=== PATIENT | female | born 1975 | race Caucasian/White ===

== ENCOUNTER 2022-02-24 00:13 | Emergency (ER) | payer OTHER, SELFPAY ==
[2022-02-24 00:17] VITALS: BP 138/103; PULSE 84; RESP 16; TEMP 36.4; O2SAT 95; BMI 26.4
--- NOTE | 2022-02-24 00:18 | W.ED.ALLEREA ---
HPI - Allergic Reaction General: Chief complaint: Allergic Reaction Stated complaint: Allergic Reaction Time Seen by Provider: 02/24/22 00:17 History of Present Illness: HPI narrative: 46-year-old female comes in today for complaints of hives patient has had a persistent rash since Wednesday. Patient felt worse tonight with itching all over and malaise and sore throat. Patient was given a dose of steroids this morning at the walk-in clinic and has been given a prescription for methylprednisolone. Patient has significant swelling to the face and hives all over. Review of Systems ENMT: Reports: swelling of lips/tongue Skin/Breast: Reports: rash Physical Exam Const: COMMON NORMALS: alert HENMT: HEAD & SCALP: other (Facial swelling) THROAT: posterior oropharynx normal Eye: GENERAL EYE: normal light reflex DIRECT OPHTHALMOSCOPY: Yes normal light reflex Resp: COMMON NORMALS: normal respiratory effort AUSCULTATION: diminished lung sounds Cardio: COMMON NORMALS: regular rate and regular rhythm RATE: regular rate RHYTHM: regular rhythm GI: COMMON NORMALS: Soft to palpation PALPATION: Yes Soft to palpation Extremity: COMMON NORMALS: normal to inspection Neuro: SENSORIUM/ORIENTATION: Yes alert Skin: RASHES: rashes noted (Generalized urticaria.) Course Vital Signs: Vital signs: Vital Signs Temperature 97.6 F 02/24/22 00:17 Pulse Rate 96 02/24/22 00:25 Respiratory Rate 16 02/24/22 00:25 Blood Pressure 126/75 02/24/22 00:25 Pulse Oximetry 95 02/24/22 00:25 Oxygen Delivery Me thod 02/24/22 00:17 MDM - Allergic Reaction Medical Decision Making 46-year-old female comes in today for complaints of itching and rash that has been going on since Wednesday evening. Patient does not know what has caused her hives. Patient was seen earlier today and given a dose of steroids IM but tonight the rash seemed to have progressed worse and causing more discomfort and facial swelling along with hives. Patient appears nontoxic. Patient respirations are even. Lungs diminished in the bases. Patient does have some mild facial swelling and some urticaria diffuse to the body. Differential diagnosis includes but not limited to allergic reaction, urticaria, anaphylaxis. Patient was given 0.3 mg of epinephrine IM, and 50 mg of diphenhydramine. Patient will be continued on antihistamines routinely along with her methylprednisone that was started today. Patient reported understanding of care plan and need for follow-up or return to the ER. Discharge Plan Discharge Patient Disposition: Home Clinical Impression: Allergic reaction Qualifiers: Encounter type: initial encounter Qualified Code(s): T78.40XA - Allergy, unspecified, initial encounter Condition: Stable Prescriptions: New loratadine 10 mg tablet 10 mg PO BID Qty: 60 0RF Rx Instructions: Use 1 to 2 tablets 2 times a day for itching and rash. Discharge Orders: Discharge ED (Routine); Ordered 02/24/22 Ordered By: Bill Booth Discharge Diet: Usual diet Discharge Activity: Increase activity as tolerated Patient Instructions: Allergic Reaction Activity Restrictions/Additional Instructions: Take loratadine 10 mg 1 or 2 tablets twice a day, once in the morning and once in the evening, to control itching and rash. Drink plenty of water and fluids with medications. Use steroid pack as described. Follow-up with primary care for further instruction. Return to ED for new concerns. Coding Level of Care Code ED Process Validation Engineer for Malu Stanley Exam Comprehensive
[2022-02-24 00:25] VITALS: BP 126/75; PULSE 96; RESP 16; O2SAT 95
[2022-02-24] MEDS: diphenhydrAMINE 50 mg/mL SDV 1mL IM (00:30)
[2022-02-24] MEDS: EPINEPHrine 1 mg/mL INJ 0.3 MG IM (00:31)
[2022-02-24] MEDS: cetirizine 10 mg Tablet PO (01:29)
[2022-02-24 01:51] VITALS: BP 137/90; PULSE 86; RESP 16; O2SAT 94
== END 2022-02-24 01:59 | disposition home or self-care (01) ==
PROVIDERS: Emergency Provider Nurse Practitioner Family
DX: T78.40XA Allergy, unspecified, initial encounter (principal)
CPT/HCPCS: 96372; 99284; J0171; J1200

== ENCOUNTER 2022-05-11 10:07 | Inpatient (IN) | payer OTHER, SELFPAY ==
[2022-05-11 10:12] VITALS: BP 105/75; PULSE 114; RESP 18; TEMP 36.6; O2SAT 96
--- NOTE | 2022-05-11 10:28 | XR_ITS ---
WS: [id number] Exam: XR chest 1V portable [id number] Date/Time of Exam: 05/11/2022 10:32 AM Reason For Exam: fever, body aches No priors. Findings: The lungs are clear and fully expanded. Costophrenic angles are sharp. No infiltrates. Bronchovascula r relief appears normal. Cardiac silhouette is unremarkable. Bony elements are intact. XR/XR chest 1V portable [id number] IMPRESSION: Unremarkable chest radiograph.
--- NOTE | 2022-05-11 10:43 | ED_ITS ---
HPI - Fever General: Chief Complaint: Fever Stated Complaint: fever Time Seen by Provider: 05/11/22 10:17 Source: patient Mode of arrival: ambulatory Limitations: no limitations History of Present Illness: Patient is a 46-year-old female presents to ED today with a complaint of body aches, chills, and subjective fevers. Patient has a family member in the room that provides much of the translation. She does states she was recently seen at a walk-in clinic and prescribed ciprofloxacin but she does not know why. She states a few days ago she had what she thought was blood in her urine but states this cleared up by increasing her fluid intake. She has not had a cough, shortness of breath, difficulty breathing, chest pain. Reports some vague right sided abdominal discomforts. Denies nausea, vomiting, changes in bowel movements. She denies dysuria, frequency, urgency. No sick contacts. MD elicited complaint: fever (subjective) and other (chills, body aches) Exacerbating factors: nothing Relieving factors: nothing Associated symptoms: Reports chills; Deny abdominal pain, flank pain, chest pain, confusion, diarrhea, dysuria, extremity pain, headache(s), nasal congestion, nausea or vomiting Treatments prior to arrival fever: none Review of Systems Const: Reports: fever(s) (subjective), chills and body aches; Denies: fatigue or malaise Eyes: Denies: change in vision or blurry vision ENMT: Denies: throat pain, odynophagia, nasal discharge or nasal congestion Card: Denies: chest pain, palpitations, irregular heart rhythm, lightheadedness, syncope or dyspnea on exertion Resp: Denies: dyspnea, productive cough or pain on inspiration GI: Denies: abdominal pain, nausea, vomiting, heartburn or diarrhea : Reports: hematuria (questionable); Denies: flank pain or dysuria Musc: Denies: neck pain, back pain, extremity pain, extremity swelling or joint pain Skin/Breast: Denies: rash Neuro: Denies: headache(s), numbness in extremities, weakness in extremities, sensory changes, difficulty walking, dizziness or confusion Physical Exam Const: COMMON NORMALS: no acute distress, average body habitus, patient oriented x3, no limitations, healthy appearing, alert and well nourished G ENERAL APPEARANCE: cooperative ORIENTATION/CONSCIOUSNESS: Yes awake, Yes oriented to person, Yes oriented to place and Yes oriented to time HENMT: COMMON NORMALS: normocephalic and atraumatic HEAD & SCALP: normal to inspection, normocephalic and atraumatic FACE & SINUS: normal facial exam Eye: GENERAL EYE: appearance normal, both eyes and all related structures Neck/C-Spine: COMMON NORMALS: full ROM, no lymphadenopathy, supple and no meningeal signs GENERAL: Yes normal visual inspection Chest: COMMONS NORMALS: normal inspection of the chest and normal palpation of entire chest wall Resp: COMMON NORMALS: normal respiratory effort and clear to auscultation bilaterally AUSCULTATION: clear to auscultation bilaterally Cardio: COMMON NORMALS: regular rhythm RATE: tachycardic RHYTHM: regular rhythm GI: COMMON NORMALS: Normal to inspection, nondistended, normoactive bowel sounds present, Soft to palpation, No hepatosplenomegaly present and no masses INSPECTION: Yes normal to inspection AUSCULTATION: Yes normoactive bowel sounds PALPATION: Yes Soft to palpation, Yes Tenderness to palpation present (GI) (R mid to lateral abdomen), No Guarding due to palpation present (GI), No Rigid due to palpation and Yes No hepatosplenomegaly present : COMMON NORMALS: Yes no CVA tenderness (tenderness below R CVA) BLADDER/KIDNEY EXAM: Yes no CVA tenderness (tenderness below R CVA) Back/Pelvis: COMMON NORMALS: no CVA tenderness (tenderness below R CVA), thoracic and lumbar spine normal to inspection, no thoracic nor lumbar tenderness and thoraco-lumbar ROM normal Extremity: COMMON NORMALS: normal to inspection GENERAL: Yes normal exam except as noted Neuro: DORIE COMA SCALE: document GCS findings [place] coma scale eye opening: Spontaneous Dorie coma scale verbal response: Orientated Dorie coma scale motor response: Obey commands Dorie coma scale total score: 15 COMMON NORMALS: patient oriented x3, moves all extremities, no focal motor deficits, no sensory deficits noted and gait normal SENSORIUM/ORIENTATION: Yes alert, Yes oriented to person, Yes oriented to place and Yes oriented to time MENINGEAL SIGNS: Yes no meningeal signs Skin: COMMON NORMALS: no rashes or lesions noted GENERAL SKIN EXAM: no rashes or lesions noted Course Vital Signs: Vital signs: Vital Signs Temperature 98.7 F 05/11/22 13:23 Pulse Rate 93 05/11/22 13:23 Respiratory Rate 17 05/11/22 13:23 Blood Pressure 100/64 05/11/22 13:23 Pulse Oximetry 98 05/11/22 13:23 Oxygen Delivery Me thod 05/11/22 13:23 MDM - Fever Medical Decision Making Patient is a 46-year-old female here with complaints of body aches, chills, generally feeling ill, and subjective fevers. She arrives tachycardic but afebrile. She was seen at [facility] yesterday and at the time also had a complaint of dark/bloody urine. They performed a UA showed 2+ blood, positive nitrates, and trace leuks. They placed her on Cipro. I do not believe culture was performed as unit technician tried to obtain this and they did not have any prelim results. Patient is here in our ED today with continued symptoms. She complained of some abdominal/flank pains therefore CT imaging obtained which showed a 5 mm right mid ureter calculus. Her initial UA here was contaminated with 5-10 squamous cells thus cath urine obtained. It is positive for blood but negative for nitrates and leuks and overall looks clean. She has a normal white count. Given the concern for infection based on her UA yesterday and symptoms of body aches/chills/subjective fevers I spoke to Dr. Schulte who recommends admission/IV antibiotics at this time. Lab Data 05/11/22 10:59 05/11/22 10:59 Radiology Impressions Chest X-Ray 05/11/22 10:28 IMPRESSION: Unremarkable chest radiograph. Abdomen/Pelvis CT 05/11/22 11:59 IMPRESSION: 1. Obstructing RIGHT midureteral calculus measuring 5 mm. Mild RIGHT hydronephrosis with inflammatory stranding and edema about the RIGHT kidney. 2. No hydronephrosis in the LEFT kidney. 3. Enlarged bulky fibroid uterus. Low-attenuation cystic appearing lesion near the cervix. Findings can be further evaluated with ultrasound. 4. Bibasilar atelectasis. Trace RIGHT greater than LEFT pleural fluid. 5. No other acute findings. Attempted notification CLARITA Love at 05/11/2022 1:05 PM. Laboratory Results WBC 7.3 10^3/uL (4.0-10.0) 05/11/22 10:59 RBC 4.61 10^6/uL (4.1-5.3) 05/11/22 10:59 Hgb 13.2 g/dL (11.5-15.3) 05/11/22 10:59 Hct 40.8 % (37.0-47.0) 05/11/22 10:59 MCV 88.5 fl (81-99) 05/11/22 10:59 MCH 28.6 pg (28.0-34.0) 05/11/22 10:59 MCHC 32.4 g/dL (30.0-36.0) 05/11/22 10:59 RDW 12.5 % (12.1-15.1) 05/11/22 10:59 Plt Count 247 10^3/cmm (130-400) 05/11/22 10:59 MPV 9.2 fL (7.4-10.4) 05/11/22 10:59 Neut % (Auto) 90.3 % 05/11/22 10:59 Lymph % (Auto) 4.3 % 05/11/22 10:59 Lynn % (Auto) 4.9 % 05/11/22 10:59 Eos % (Auto) 0.0 % 05/11/22 10:59 Baso % (Auto) 0.1 % 05/11/22 10:59 Neut # (Auto) 6.57 10^3/uL (1.8-7.7) 05/11/22 10:59 Lymph # (Auto) 0.3 10^3/uL (0.8-4.8) L 05/11/22 10:59 Lynn # (Auto) 0.4 10^3/uL (0.2-0.9) 05/11/22 10:59 Eos # (Auto) 0.0 10^3/uL (0.0-0.8) 05/11/22 10:59 Baso # (Auto) 0.0 10^3/uL (0.0-0.1) 05/11/22 10:59 Nucleated RBC % (auto) 0 % 05/11/22 10:59 Nucleated RBCs # 0.0 /100WBC 05/11/22 10:59 Sodium 133 mmol/L (136-145) L 05/11/22 10:59 Potassium 3.0 mmol/L (3.5-5.1) L 05/11/22 10:59 Chloride 97 mmol/L (98-107) L 05/11/22 10:59 Carbon Dioxide 22 mmol/L (22-29) 05/11/22 10:59 Anion Gap 17.0 (5-19) 05/11/22 10:59 BUN 7 mg/dL (6-20) 05/11/22 10:59 Creatinine 0.6 mg/dL (0.5-0.9) 05/11/22 10:59 GFR Calculation 108.1 mL/min (90-130) 05/11/22 10:59 Glucose 170 mg/dL (65-115) H 05/11/22 10:59 Calculated Osmolality 278 mOsm/kg (285-295) L 05/11/22 10:59 Calcium 9.3 mg/dL (8.5-10.5) 05/11/22 10:59 Total Bilirubin 0.8 mg/dL (0.15-1.2) 05/11/22 10:59 AST 54 U/L (0-32) H 05/11/22 10:59 ALT 67 U/L (0-33) H 05/11/22 10:59 Alkaline Phosphatase 98 U/L (35-105) 05/11/22 10:59 Total Protein 7.7 g/dL (6.6-8.7) 05/11/22 10:59 Albumin 3.9 g/dL (3.5-5.2) 05/11/22 10:59 Globulin 3.8 g/dL (1.3-4.6) 05/11/22 10:59 Urine Color Light yellow (Yellow) 05/11/22 13:32 Urine Appearance Clear (CLEAR) 05/11/22 13:32 Urine pH 6 (5-7) 05/11/22 13:32 Ur Specific [place] 1.005 (1.005-1.030) 05/11/22 13:32 Urine Protein Neg (Negative) 05/11/22 13:32 Urine Glucose (UA) Norm (Normal) 05/11/22 13:32 Urine Ketones Negative (Negative) 05/11/22 13:32 Urine Blood 2+ (Negative) H 05/11/22 13:32 Urine Nitrate Negative (Negative) 05/11/22 13:32 Urine Bilirubin Neg (Negative) 05/11/22 13:32 Urine Urobilinogen Norm mg/dL (Negative) 05/11/22 13:32 Ur Leukocyte Esterase Negative (Negative) 05/11/22 13:32 Urine RBC 0-4 /hpf (0-2) H 05/11/22 11:17 Urine WBC 0-4 /hpf (0-5) H 05/11/22 11:17 Ur Squamous Epith Cells 5-10 /hpf (0-5) H 05/11/22 11:17 Amorphous Sediment Trace /hpf 05/11/22 11:17 Urine Bacteria 1+ /hpf (NONE) H 05/11/22 11:17 Influenza Type A Ag negative (Negative) 05/11/22 11:05 Influenza Type B Ag negative (Negative) 05/11/22 11:05 SARS-CoV-2 Ag (Rapid) negative (Negative) 05/11/22 11:05 Discharge Plan Discharge Patient Disposition: Admitted As Inpatient Clinical Impression: Right ureteral calculus, UTI (urinary tract infection) Condition: Stable Coding Level of Care Code ED Sheeter Operator for Malu Stanley
[2022-05-11] MEDS: acetaminophen 500 mg Tablet 1000 MG PO (11:04)
[2022-05-11 11:19] LABS: Basophils % 0.1 %; Hematocrit 40.8 % (37.0-47.0); Hemoglobin 13.2 g/dL (11.5-15.3); Lymphocytes # 0.3 10^3/uL (0.8-4.8); Lymphocytes % 4.3 %; Mean Corpuscular HGB Conc 32.4 g/dL (30.0-36.0); Mean Corpuscular Hemoglobin 28.6 pg (28.0-34.0); Mean Corpuscular Volume 88.5 fl (81-99); Mean Platelet Volume 9.2 fL (7.4-10.4); Monocytes # 0.4 10^3/uL (0.2-0.9); Monocytes % 4.9 %; Neutrophils # 6.57 10^3/uL (1.8-7.7); Neutrophils % 90.3 %; Nucleated Red Blood Cells % 0 %; Platelet Count 247 10^3/cmm (130-400); Red Blood Count 4.61 10^6/uL (4.1-5.3); Red Cell Distribution Width 12.5 % (12.1-15.1); White Blood Count 7.3 10^3/uL (4.0-10.0)
[2022-05-11 11:33] LABS: Influenza A by IFA negative (Negative); Influenza B by IFA negative (Negative); SARS Covid-2 Antigen negative (Negative)
[2022-05-11 11:37] LABS: Slide Review Slide Review Perform
[2022-05-11 11:48] LABS: Alanine Aminotransferase 67 U/L (0-33); Albumin Level 3.9 g/dL (3.5-5.2); Alkaline Phosphatase 98 U/L (35-105); Aspartate Amino Transferase 54 U/L (0-32); Blood Urea Nitrogen 7 mg/dL (6-20); Calcium 9.3 mg/dL (8.5-10.5); Carbon Dioxide 22 mmol/L (22-29); Chloride 97 mmol/L (98-107); Globulin 3.8 g/dL (1.3-4.6); Glomerular Filtration Rate 108.1 mL/min (90-130); Glucose 170 mg/dL (65-115); Osmolality Calculated 278 mOsm/kg (285-295); Sodium 133 mmol/L (136-145); Total Bilirubin 0.8 mg/dL (0.15-1.2); Total Protein 7.7 g/dL (6.6-8.7)
[2022-05-11 11:53] LABS: Add Urine Microscopic? YES; Bilirubin Urine Neg (Negative); Blood Urine 2+ (Negative); Glucose Urine UA Norm (Normal); Ketones Urine Negative (Negative); Leukocyte Esterase Urine Negative (Negative); Nitrate Urine Negative (Negative); Protein Urine Neg (Negative); RBC Urine 0-4 /hpf (0-2); Specific Gravity, Urine 1.005 (1.005-1.030); Urine Appearance Clear (CLEAR); Urine Color Yellow (Yellow); Urobilinogen Urine Norm (Negative); WBC Urine 0-4 /hpf (0-5); pH Urine 6.5 (5-7)
[2022-05-11 11:54] LABS: Add Urine Culture? No; Amorphous Sediment Urine TRACE /hpf; Bacteria Urine 1+ /hpf
--- NOTE | 2022-05-11 11:59 | CT_ITS ---
WS: [id number] CT ABDOMEN PELVIS TECHNIQUE: Noncontrast CT of the abdomen and pelvis with coronal and sagittal reformatted images. CLINICAL INFORMATION: R abdominal pain, hematuria, fevers COMPARISON: None. DLP: 521.[address] scans at [facility] use at least one of these dose optimization techniques: automated e xposure control; mA and/or kV adjustment per patient size (includes targeted exams where dose is matc hed to clinical indication); or iterative reconstruction. FINDINGS: Bibasilar atelectasis. Trace RIGHT greater than LEFT pleural fluid. Tiny nodule RIGHT middle lobe juwan suring 3 mm. Mild hepatomegaly. Small esophageal hiatal hernia. Noncontrast pancreas is normal. Nonco ntrast spleen is normal. Adrenal glands are normal. Normal caliber abdominal aorta. Heterogeneous enlarged fibroid uterus. Obstructing RIGHT ureteral calculus in the mid RIGHT ureter me asuring 5 mm. Mild RIGHT hydronephrosis. Distal RIGHT ureter is decompressed. No obstructing LEFT mee al or ureteral calculi. Urine distended bladder. Low-attenuation cystic lesion near the cervix measuring 2.2 CM. Normal sigmo id colon. No evidence of high-grade small or large bowel obstruction. CT/CT kidney stone [id number] IMPRESSION: 1. Obstructing RIGHT midureteral calculus measuring 5 mm. Mild RIGHT hydroneph rosis with inflammatory stranding and edema about the RIGHT kidney. 2. No hydronephrosis in the LEFT kidney. 3. Enlarged bulky fibroid uterus. Low-attenuation cystic appearing lesion near the cervix. Findings can be further evaluated with ultrasound. 4. Bibasilar atelectasis. Trace RIGHT greater than LEFT pleural fluid. 5. No other acute findings. Attempted notification CLARITA Love at 05/11/2022 1:05 PM.
[2022-05-11] MEDS: potassium chloride ER 20 mEq Tablet 40 MEQ PO ×2 (12:24→22:13)
[2022-05-11 13:23] VITALS: BP 100/64; PULSE 93; RESP 17; TEMP 37.1; O2SAT 98
[2022-05-11 13:48] LABS: Charge for UA Resulting for Rev
[2022-05-11 14:29] LABS: Bilirubin Urine Neg (Negative); Blood Urine 2+ (Negative); Glucose Urine UA Norm (Normal); Ketones Urine Negative (Negative); Leukocyte Esterase Urine Negative (Negative); Nitrate Urine Negative (Negative); Protein Urine Neg (Negative); Specific Gravity, Urine 1.005 (1.005-1.030); Urine Appearance Clear (CLEAR); Urine Color Light yellow (Yellow); Urobilinogen Urine Norm (Negative); pH Urine 6 (5-7)
[2022-05-11 14:35] LABS: Add Urine Microscopic? NO
[2022-05-11] MEDS: ondansetron 2 mg/ML SDV 2 mL 4 MG IVP (15:29)
[2022-05-11] MEDS: morphine 4 mg/mL SDV 1 mL IVP (15:29)
[2022-05-11] MEDS: cefTRIAXone 1,000 MG in sodium chloride 0.9% (plus) 50 ML 100 MG IV (15:29)
--- NOTE | 2022-05-11 17:25 | P.HP_ITS ---
Providers/Chief Complaint Admitting Physician: Matthew Schulte MD Chief Complaint: Right ureteral stone History of Present Illness Rickie Reyes is a 46 year old female who I evaluated for the first time today at the request of the emergency department for a right mid ureteral stone with obstruction. She had been seen in an urgent care recently With subjective fever and chills. Urinalysis apparently showed pyuria. She was treated with ciprofloxacin with recommendation to follow-up.. Today she presented to the emergency department with worsening of symptoms. A CT scan was performed because of increasing right-sided abdominal pain and it showed an obstructing 5 mm right mid ureteral stone. Because of the concern related to infection and obstruction she was admitted for further evaluation and treatment. ED work-up: * CT scan as above * WBC: 7.3 * Creatinine 0.6 * Normal liver function * Urinalysis was bland * Physical exam: Right-sided CVA tenderness and right abdominal tenderness Because of the concern related to infection and obstruction the patient was admitted for further evaluation and treatment. We spoke through a despatching and receiving clerk which was her friend. Reviewed the following plan: 1. Hydrate, IV antibiotics, pain control, serial KUBs. I do not think she needs surgical intervention right at this time based on her current presentation. 2. Consider surgical intervention with ESWL or endoscopy based on how she responds over the next 24 hours 3. Emergency stenting for evidence of progression of infectious concerns Review of Systems Const: Reports: fever(s), chills, body aches and malaise Eyes: Denies: change in vision ENMT: Denies: hoarseness Card: Denies: chest pain or palpitations Resp: Denies: dyspnea or productive cough GI: Reports: abdominal pain and nausea : Reports: flank pain Musc: Denies: extremity swelling, joint pain or joint redness Skin/Breast: Denies: rash or pruritus Neuro: Denies: confusion, behavioral changes or Slurred speech present Psych: Denies: memory loss Endo: Denies: flushing Moose/Lymph: Denies: easy bruising or easy bleeding All/Imm: Denies: urticaria or acute wheezing Medications/Allergies Home Medications Medication Instructions Recorded Confirmed Last Taken Type acetaminophen 500 mg tablet 500 mg PO Q6H PRN Fever 05/11/22 05/11/22 05/11/22 History ciprofloxacin HCl 500 mg tablet 500 mg PO BID 02/05/11/22 05/11/22 History (Cipro) Allergies Allergy/AdvReac Type Severity Reaction Status Date / Time No Known Allergies Allergy Verified 02/24/22 00:27 Vitals/I&O/Wt Last Vital Signs Temp 98.7 F 05/11/22 13:23 Pulse 93 05/11/22 13:23 Resp 17 05/11/22 13:23 BP 100/64 05/11/22 13:23 Pulse Ox 98 05/11/22 13:23 O2 Del Method 05/11/22 13:23 Weight last 48 hrs Weight 156 lb 8 oz Physical Exam Const: COMMON NORMALS: no acute distress, alert and well nourished GENERAL APPEARANCE: well kempt and well developed ORIENTATION/CONSCIOUSNESS: not confused HENMT: COMMON NORMALS: normocephalic HEAD & SCALP: normal to inspection and normocephalic Eye: COMMON NORMALS: conjunctivae normal and no scleral icterus CONJU NCTIVA: Yes conjunctivae normal Neck/C-Spine: GENERAL: Yes normal visual inspection Lymph: OTHER: No palpable lymphadenopathy Chest: OTHER: Normal chest movements Resp: COMMON NORMALS: normal respiratory effort EFFORT & INSPECTION: Yes able to speak in complete sentences, No labored and No Actively coughing Cardio: OTHER: Regular rhythm GI: COMMON NORMALS: Soft to palpation OTHER: Right upper quadrant tenderness. Right CVA tenderness : OTHER: Bladder nondistended. Back/Pelvis: OTHER: Right-sided CVA tenderness Extremity: COMMON NORMALS: no clubbing, cyanosis or edema Neuro: COMMON NORMALS: no focal motor deficits SENSORIUM/ORIENTATION: Yes alert Psych: COMMON NORMALS: mental status grossly normal APPEARANCE: Yes grossly normal and Yes well kempt ATTITUDE: Yes calm and Yes engaged Skin: COMMON NORMALS: no rashes or lesions noted and no jaundice GENERAL SKIN EXAM: no rashes or lesions noted Data 05/11/22 10:59 05/11/22 10:59 Micro: Microbiology 05/11/22 16:14 Blood Culture - Preliminary Blood SPECIMEN COLLECTED 05/11/22 16:08 Blood Culture - Preliminary Blood SPECIMEN COLLECTED A&P Assessment and plan (1) Right ureteral calculus: Severely symptomatic. (2) UTI (urinary tract infection): Urine looks much better today than it did yesterday but she has had some antibiotics. Still having subjective fevers and chills. Generalized malaise as well but no hemodynamic instability. Plan See HPI Attestations Medical Necessity Statement*: Admitted for further evaluation and treatment of obstructing stone with history of UTI concurrently. Time Spent in Patient Care: Greater than 35 minutes (>than 50% of time spent in counselling and/or direct pt care on unit) . Coding Level of Care Code Acute Code for g Fwd Diagnoses Right ureteral calculus N20.1 UTI (urinary tract infection) N39.0
[2022-05-11 18:01] VITALS: BMI 26.9
[2022-05-11 18:13] VITALS: BP 123/81; PULSE 102; RESP 18; TEMP 36.8; O2SAT 96
[2022-05-11 20:00] VITALS: BP 116/76; PULSE 92; RESP 17; TEMP 36.9; O2SAT 98
[2022-05-11] MEDS: sodium chlor 0.45% +KCl 20 mEq 20 MEQ/1,000 ML BAG 125 MEQ IV (22:12)
[2022-05-11] MEDS: ketorolac 30 mg/mL INJ IVP (22:13)
[2022-05-11] MEDS: docusate sodium 100 mg Capsule PO (22:13)
[2022-05-12] VITALS: PULSE 80; TEMP 37.4; O2SAT 98
[2022-05-12] MEDS: cefTRIAXone 1,000 MG in sodium chloride 0.9% (plus) 50 ML 100 MG IV ×2 (03:53→15:26)
[2022-05-12] MEDS: potassium chloride ER 20 mEq Tablet 40 MEQ PO (03:54)
[2022-05-12 04:00] VITALS: BP 121/78; PULSE 78; RESP 17; TEMP 37; O2SAT 99
[2022-05-12 04:50] LABS: Hematocrit 38.9 % (37.0-47.0); Hemoglobin 12.3 g/dL (11.5-15.3); Mean Corpuscular HGB Conc 31.6 g/dL (30.0-36.0); Mean Corpuscular Hemoglobin 28.5 pg (28.0-34.0); Mean Platelet Volume 9.6 fL (7.4-10.4); Platelet Count 233 10^3/cmm (130-400); Red Blood Count 4.32 10^6/uL (4.1-5.3); Red Cell Distribution Width 12.4 % (12.1-15.1); White Blood Count 5.1 10^3/uL (4.0-10.0)
[2022-05-12 05:11] LABS: Slide Review Slide Review Perform
[2022-05-12 05:15] LABS: Anion Gap 15.4 (5-19); Blood Urea Nitrogen 10 mg/dL (6-20); Calcium 8.8 mg/dL (8.5-10.5); Carbon Dioxide 22 mmol/L (22-29); Chloride 100 mmol/L (98-107); Glomerular Filtration Rate 108.1 mL/min (90-130); Glucose 133 mg/dL (65-115); Osmolality Calculated 277 mOsm/kg (285-295); Potassium 4.4 mmol/L (3.5-5.1); Sodium 133 mmol/L (136-145)
[2022-05-12 05:28] LABS: Total Cells Counted 100 (0-100)
[2022-05-12 05:29] LABS: Absolute Segmented Neutrophil 3.9 10/cmm (1.6-7.1); Band Neutrophils Absolute 0.3 10^3/cmm (0.0-1.2); Eosinophils 0 %; Monocytes Absolute 0.4 10^3/cmm (0.1-0.6); Segmented Neutrophils 76 %
[2022-05-12 05:30] LABS: Absolute Neutrophil 4.1 10^3/cmm (1.4-6.5); Lymphocytes 9 %; Lymphocytes Absolute 0.5 10^3/cmm (1.2-3.4); Platelet Estimate Normal (Normal); Toxic Granulation 1+
--- NOTE | 2022-05-12 06:00 | XRR_ITS ---
PROCEDURE INFORMATION: Exam: XR Abdomen Exam date and time: 05/12/2022 7:24 AM Age: 46 years old Clinical indication: Abdominal pain; Localized; Right; Additional info: Follow-up right ureteral calculus, not portable TECHNIQUE: Imaging protocol: Radiologic exam of the abdomen. Views: Frontal supine view of the abdomen. 1 View. COMPARISON: CT kidney stone [id number] 05/11/2022 12:29 PM FINDINGS: Gastrointestinal tract: Normal. No bowel dilation. Bones/joints: Unremarkable. XR/XR KUB [id number] IMPRESSION: No acute findings.
[2022-05-12 08:00] VITALS: BP 139/93; PULSE 100; RESP 18; TEMP 37.2; O2SAT 100
[2022-05-12] MEDS: docusate sodium 100 mg Capsule PO (08:33)
[2022-05-12] MEDS: sodium chlor 0.45% +KCl 20 mEq 20 MEQ/1,000 ML BAG 125 MEQ IV ×2 (08:33→17:29)
[2022-05-12] MEDS: pantoprazole DR 40 mg Tablet PO (08:33)
[2022-05-12] MEDS: ketorolac 30 mg/mL INJ IVP (08:34)
[2022-05-12] MEDS: oxyCODONE-APAP 5-325 mg Tablet 1 TAB PO (10:47)
--- NOTE | 2022-05-12 11:49 | PC.CHAP ---
Pastoral Care Encounter/Spiritual Assessment Type of Contact [] Declined entry level paralegal visit [] Patient/Family/Request visit [] Outpatient visit [] Follow-up visit [] Physician referral [] Code/Alert [x] Routine visit [] Staff referral [] Actively dying [] Patient sleeping [] Family support [] [] Out of room [] Palliative care [] [] Receiving care in room [] Pre-surgical visit [] Trauma [] Long length of stay [] ICU visit [] Other: Relational/Emotional Strength [x] Patient feels connected with others/family/visitors/staff [] Distress [] Loneliness/isolation [] Abandonment Spirituality of Patient [] Person of Radha [] Attends Temple of their Radha [] Believes in Prayer [] Reads Bible or Denominational materials [] There are Spiritual issues to be addressed Director Report Interventions [] Prayer [] Active listening [] Non-anxious presence [] Spiritual/emotional support [] Crisis/trauma care [] Spiritual counseling [] Bereavement support [] Provided bereavement packet [] Provided Bible/devotional materials [] Provided toy/stuffed animal, coloring book to patient or family member [] Provided Communion [] Anointing/[place] [] Salvation [x] Completed spiritual assessment [] Other: Impact on Illness or Injury [] Angry [] Fearful [] Anxious [] Often cries [] Exhaustion [] Unable to work [] Unable to attend sabianist [] Unable to walk/stand [] Unable to read [] Unable to drive [] Unable to eat/drink [] Unable to sleep [] Unable to be with family [] Patient intubated [] Other: Summary Time spent with patient 10 min
[2022-05-12 12:00] VITALS: BP 99/60; PULSE 81; RESP 15; TEMP 36.5; O2SAT 99
--- NOTE | 2022-05-12 12:28 | P.PN_ITS ---
Subjective Subjective: Hospital day #2: Urology follow-up Has been afebrile overnight. Somewhat tachycardic. No evidence of hemodynamic instability. Good oxygenation normal respiratory rate. Pain aggressively treated since admission and doing better. Antibiotic day #2 as well. White count is normal. Creatinine 0.6 Medications: Reviewed: Yes Vitals/I&O/Wt Last Vital Signs Temp 98.6 F 05/12/22 04:00 Pulse 78 05/12/22 04:00 Resp 17 05/12/22 04:00 BP 121/78 05/12/22 04:00 Pulse Ox 99 05/12/22 04:00 O2 Del Method 05/11/22 18:13 05/11/22 05/12/22 05/12/22 22:59 06:59 14:59 Intake Total 530 / 530 50 / 580 Balance 530 / 530 50 / 580 Weight last 48 hrs Weight 156 lb 8 oz Weight 156 lb 8 oz Physical Exam Const: COMMON NORMALS: no acute distress, alert and well nourished GENERAL APPEARANCE: well kempt and well developed ORIENTATION/CONSCIOUSNESS: not confused Chest: OTHER: Normal chest movements Resp: COMMON NORMALS: normal respiratory effort EFFORT & INSPECTION: Yes able to speak in complete sentences, No labored and No Actively coughing Cardio: OTHER: Regular rhythm GI: OTHER: Right upper quadrant tenderness. Right CVA tenderness : OTHER: Bladder nondistended. Extremity: COMMON NORMALS: no clubbing, cyanosis or edema Neuro: COMMON NORMALS: no focal motor deficits SENSORIUM/ORIENTATION: Yes alert Psych: COMMON NORMALS: mental status grossly normal APPEARANCE: Yes grossly normal and Yes well kempt ATTITUDE: Yes calm and Yes engaged Skin: COMMON NORMALS: no rashes or lesions noted and no jaundice GENERAL SKIN EXAM: no rashes or lesions noted Data 05/12/22 04:19 05/12/22 04:19 Micro: Microbiology 05/11/22 16:14 Blood Culture - Preliminary Blood SPECIMEN COLLECTED 05/11/22 16:08 Blood Culture - Preliminary Blood SPECIMEN COLLECTED A&P Assessment and plan (1) Right ureteral calculus: Less discomfort today. No movement of the stone on KUB this morning. Looks like it has a very low chance of passing based on the size. (Radiology read it as negative but the stone is clearly there when compared with a CT scan) (2) UTI (urinary tract infection): Clinically improved. No progressive infectious concerns. Plan 1. Continue IV antibiotics 2. Plan for endoscopic treatment of the stone tomorrow 3. Informed consent was obtained utilizing a friend who helped translate directly. Procedure was explained in detail. Benefits risk potential complications alternatives perioperative stent symptoms etc. Importance of removing the stent was emphasized. Follow-up will be important. Attestations Medical Necessity Statement*: We will continue IV antibiotics and plan for surgical intervention tomorrow. Coding Level of Care Code Acute Code for [facility] Fwd Diagnoses Right ureteral calculus N20.1 UTI (urinary tract infection) N39.0
[2022-05-12 16:00] VITALS: BP 124/86; PULSE 79; RESP 15; TEMP 36.9; O2SAT 99
[2022-05-12 19:52] VITALS: BP 118/75; PULSE 91; RESP 18; TEMP 37.6; O2SAT 100
[2022-05-13] VITALS (9 sets, daily range): BP systolic 102–125; BP diastolic 76–84; PULSE 81–100; RESP 16–18; TEMP 36.8–37.3; O2SAT 95–98
[2022-05-13] MEDS: cefTRIAXone 1,000 MG in sodium chloride 0.9% (plus) 50 ML 100 MG IV (04:08)
--- NOTE | 2022-05-13 06:36 | ANES.PREANE2 ---
Pre-Anesthetic Assessment Height/Weight: Height 1.63 m Weight 70.987 kg Temp Pulse Resp BP Pulse Ox O2 Del Method 99.1 F 100 17 121/84 97 05/13/22 06:05 05/13/22 06:05 05/13/22 06:05 05/13/22 06:05 05/13/22 06:05 05/13/22 06:05 Operation Date: 05/13/22 07:00 Proposed Procedures p Cystoscopy(Not Applicable) - Matthew Schulte MD s Retrograde Pyelogram(Right) - Matthew Schulte MD s Ureteroscopy(Right) - Matthew Schulte MD s Ureteral Stent Placement(Right) - Matthew Schulte MD s Laser Lithotripsy(Right) - Matthew Schulet MD Familial anesthetic complications: None Was Beta Geetha taken within 24 hours: N/A Was Clonidine taken within 24 hours: N/A Last intake: Intake Last Liquid Date 05/12/22 Last Liquid Time 20:00 Last Solid Date 05/12/22 Last Solid Time 19:00 Social No alcohol and No tobacco Exam alert, oriented x 3, clear to auscultation bilaterally and regular rate & rhythm Airway Mallampati: Class I Dentition: full Anesthetic Plan ASA status: 1 Anesthesia: General Risk of > 500 ml blood loss (7ml/kg in children): No Medications/Allergies Home Medications Medication Instructions Recorded Confirmed Last Taken Type acetaminophen 500 mg tablet 500 mg PO Q6H PRN Fever 05/11/22 05/11/22 05/11/22 History ciprofloxacin HCl 500 mg tablet 500 mg PO BID 05/11/22 05/11/22 05/11/22 History (Cipro) Allergies Allergy/AdvReac Type Severity Reaction Status Date / Time No Known Allergies Allergy Verified 02/24/22 00:27 Current Medications Generic Name Dose Route Start Last Admin Trade Name Freq PRN Reason Stop Dose Admin Docusate Sodium 100 mg 05/11/22 18:00 05/12/22 17:29 Docusate Sodium 100 Mg Capsule PO Not Given BID KATERYNA Ceftriaxone Sodium 1,000 mg/ 50 mls @ 100 mls/hr 05/12/22 03:30 05/13/22 04:54 Sodium Chloride IV Infused Q12H KATERYNA Infusion Protocol Potassium Chloride/Sodium Chloride 20 meq in 1,000 mls @ 125 mls/hr 05/11/22 18:30 05/13/22 00:04 Sodium Chlor 0.45% +Kcl 20 Meq IV 125 mls/hr .Q8H KATERYNA Infusion Ketorolac Tromethamine 30 mg 05/11/22 17:49 05/12/22 08:34 Ketorolac 30 Mg/Ml Inj IVP 05/16/22 17:48 30 mg Q6H PRN Administration MODERATE PAIN Oxycodone/Acetaminophen 1 tab 05/11/22 17:49 05/12/22 10:47 Oxycodone-Apap 5-325 Mg Tablet PO 1 tab Q4H PRN Administration SEVERE PAIN PO 1ST Pantoprazole Sodium 40 mg 05/12/22 09:00 05/12/22 08:[address] 40 Mg Tablet PO 40 mg DAILY KATERYNA Administration PFSH Anesthesia Female Reproductive History Date of last menstrual period: 05/01/22 Data Anesthesia 05/12/22 04:19 05/12/22 04:19 Short CBC 05/11/22 05/12/22 Range/Units 10:59 04:19 WBC 7.3 5.1 (4.0-10.0) 10^3/uL Hgb 13.2 12.3 (11.5-15.3) g/dL Hct 40.8 38.9 (37.0-47.0) % MCV 88.5 90.0 (81-99) fl Plt Count 247 233 (130-400) 10^3/cmm Neut % (Auto) 90.3 % Neut # (Auto) 6.57 (1.8-7.7) 10^3/uL BMP 05/11/22 05/12/22 10:59 04:19 Sodium 133 L 133 L Potassium 3.0 L 4.4 Chloride 97 L 100 Carbon Dioxide 22 22 BUN 7 10 Creatinine 0.6 0.6 Glucose 170 H 133 H Calcium 9.3 8.8 Liver Function 05/11/22 Range/Units 10:59 Total Bilirubin 0.8 (0.15-1.2) mg/dL AST 54 H (0-32) U/L ALT 67 H (0-33) U/L Alkaline Phosphatase 98 (35-105) U/L Albumin 3.9 (3.5-5.2) g/dL Urine 05/11/22 05/11/22 Range/Units 11:17 13:32 Urine Color Yellow Light yellow (Yellow) Urine Appearance Clear Clear (CLEAR) Urine pH 6.5 6 (5-7) Ur Specific [place] 1.005 1.005 (1.005-1.030) Urine Protein Neg Neg (Negative) Urine Glucose (UA) Norm Norm (Normal) Urine Ketones Negative Negative (Negative) Urine Nitrate Negative Negative (Negative) Urine Bilirubin Neg Neg (Negative) Ur Leukocyte Esterase Negative Negative (Negative) Urine RBC 0-4 H (0-2) /hpf Urine WBC 0-4 H (0-5) /hpf COVID Results 05/11/22 11:05 SARS-CoV-2 Ag (Rapid) negative Microbiology 05/11/22 16:14 Blood Culture - Preliminary Blood NEGATIVE TO DATE 05/11/22 16:08 Blood Culture - Preliminary Blood NEGATIVE TO DATE Cardiac Studies: No Data to Display
[2022-05-13 06:38] LABS: OR HCG Qualitative Urine Negative (Negative)
--- NOTE | 2022-05-13 06:54 | W.PM.OPSUD ---
Surgery/Procedure H&P Update DATE OF PROCEDURE: May 13, 2022 DATE H&P PERFORMED: 05/11/22 H&P UPDATE INFORMATION: I have reviewed H&P completed within last 30 days, I have examined patient prior to procedure, No changes to prior documentation and [place] [facility] [place] indicated CHANGES TO PREVIOUS DOCUMENTATION: No stone passage since yesterday PLANNED PROCEDURE: Operation Date: 05/13/22 07:00 Proposed Procedures p Cystoscopy(Not Applicable) - Matthew Schulte MD s Retrograde Pyelogram(Right) - MD phillip Delgadillo Ureteroscopy(Right) - MD phillip Delgadillo Ureteral Stent Placement(Right) - MD phillip Delgadillo Laser Lithotripsy(Right) - Matthew Schulte MD
[2022-05-13] MEDS: iohexol 350 mg/mL 100 mL Btl 10 ML XX (07:45)
--- NOTE | 2022-05-13 08:06 | P.OP_ITS ---
Operative Report Date of procedure: May 13, 2022 Pre-op diagnosis: Refractory large right mid ureteral stone Post-op diagnosis: Refractory large right mid ureteral stone Procedure done: 1. Cystoscopy, RIGHT retrograde ureteropyelogram 2. Right ureteroscopy, laser lithotripsy, stent Implants: Right ureteral stent Specimens removed/disposition: Stone fragments Pathology: Stone fragments Surgeon: Franca Estimated blood loss: Minimal Urine output: Not measured Complications: None Findings: Anesthesia: General Condition: Stable Disposition: PACU Intraoperative findings: * Stone in the expected position * Easily accessible and fragmented * Stent left indwelling at the completion of the procedure Brief History: Ms. Reyes is a very pleasant 46-year-old white female recently diagnosed with a large right mid ureteral stone and refractory symptoms. She had been diagnosed with a recent UTI concurrently. No evidence of sepsis. Was admitted for IV antibiotics and initially hope that the stone would pass but it failed to move on serial KUBs. Ultimately she chose intervention and after discussion of ESWL versus endoscopy she elected endoscopy with hopes of quicker turnaround and more definitive treatment of the stone reviewed stent versus no stent, typical perioperative symptoms and limitation etc. Procedure: After routine preoperative evaluation examination and obtaining of informed consent she was taken to the operating suite on 05/13/2022. After appropriate timeout was performed, SCDs confirmed to be functioning, preoperative antibiotics administered, beta-maribell protocol confirmed anesthesia was administered without difficulty prepped and draped in usual sterile fashion in dorsolithotomy position. 21 [place] cystoscope with 30 degree lens was introduced to urethral meatus and advanced into the bladder under videoscopy. The bladder was systematically examined. No stone was seen. An 8 [place] cone-tip catheter was intubated into the right ureteral orifice for RIGHT retrograde ureteropyelogram demonstrating: Normal course and caliber of the ureter. The filling defect plastic products sales representative of the stone had migrated to just above the pelvic vessels. The ureter proximal to that point was dilated Flexible tip guidewire was advanced up the right ureter bypassing the stone curling in the area of the upper pole calyx. A 24 ureteral access sheath inner guide was then advanced over the wire for initial dilation and a second guidewire was passed. The first wire was secured to the drapes as a safety wire the second used as a working wire the assembled total access sheath was advanced over the guidewire to just below the level of the stone. The inner guide and wire were removed. A 7 [place] offset semirigid ureteroscope was then advanced up the sheath and the stone was encountered in its expected position. A 365 ?m thulium superpulse laser fiber was utilized to fragment the stone completely most of the fragments flushed through the sheath. Some were removed with baskets. Scope was passed to the proximal ureter and no additional stone fragments were seen. The sheath was backed onto the hub of the scope and the ureter inspected as the scope was removed. No significant trauma. It was decided intraoperatively to leave an indwelling stent at the completion of the procedure. Cystoscope was then backloaded over the safety wire and a 6 [place] by 26 cm double-pigtail stent was advanced over the guidewire through the cystoscope into appropriate position as confirmed via fluoroscopy and cystoscopy. The stent was confirmed to be draining. Bladder was drained and the procedure was completed. She tolerated procedure well without complications and was awakened in the operating room and returned to PACU in stable condition. PLANS: 1. We will return to the floor for postop recovery once completed she will be discharged home. 2. We will continue antibiotics and follow-up next week for cystoscopy and stent removal with KUB first
[2022-05-13] MEDS: sodium chloride 0.9% 1,000 ML 30 ML (09:07)
[2022-05-13] MEDS: ketorolac 30 mg/mL INJ IVP (09:30)
--- NOTE | 2022-05-13 11:19 | P.DS_ITS ---
Discharge Providers Date of Admission: 05/11/22 17:12 Date of Discharge: May 13, 2022 Attending Provider at Admission: Matthew Schulte MD Attending Provider at Discharge: Matthew Schulte MD Diagnoses at Discharge Discharge Diagnosis (1) Right ureteral calculus: Details from hospital stay: Ultimately treated with endoscopic laser lithotripsy with complete fragmentation Status: Acute (2) UTI (urinary tract infection): Details from hospital stay: No progression of infectious symptoms on antibiotics in the hospital. She is to complete her course at home Status: Acute Reason for Visit Reason for Visit: Right ureteral stone Brief History: She was admitted for refractory pain related to a large right mid ureteral stone and concerns related to infectious symptoms. She had been diagnosed the day before admission with UTI at a local urgent care. Was placed on antibiotics and her urine looked improved but she was having some subjective chills and fever a nd for that reason with persistent obstruction and the low likelihood that she would spontaneously passed a stone she was admitted for further evaluation and treatment. Hospital Course Hospital Course Was immediately started on IV antibiotics and they were continued throughout her hospital stay. On 05/13/2022 she underwent retrograde ureteropyelogram ureteroscopy laser and stent for the large stone with complete fragmentation of the stone. A stent was left indwelling. She recovered well and was discharged on the afternoon of the procedure in stable condition. Was to complete her antibiotic course and follow-up in about a week for stent removal. Physical Exam 2 Const: COMMON NORMALS: no acute distress, alert and well nourished GENERAL APPEARANCE: well kempt and well developed ORIENTATION/CONSCIOUSNESS: not confused Chest: OTHER: Normal chest movements Resp: COMMON NORMALS: normal respiratory effort EFFORT & INSPECTION: Yes able to speak in complete sentences, No labored and No Actively coughing Cardio: OTHER: Regular rhythm : OTHER: Bladder nondistended. Extremity: COMMON NORMALS: no clubbing, cyanosis or edema Neuro: COMMON NORMALS: no focal motor deficits SENSORIUM/ORIENTATION: Yes alert Psych: COMMON NORMALS: mental status grossly normal APPEARANCE: Yes grossly normal and Yes well kempt ATTITUDE: Yes calm and Yes engaged INSIGHT: Good insight present (Psych) Skin: COMMON NORMALS: no rashes or lesions noted and no jaundice GENERAL SKIN EXAM: no rashes or lesions noted Discharge Data Studies Completed and Pending Completed Studies During Hospitalization Category Date Time Status CT abdomen renal stone [CT kidney stone [id number]] Stat Cat Scan 05/11/22 11:59 Completed XR KUB [id number] Routine Exams 05/12/22 06:00 Completed XR chest 1V portable [id number] Urgent Exams 05/11/22 10:28 Completed Pending at discharge Category Date Time Status C-arm Fluoroscopy [id number] Routine Exams 05/13/22 06:52 Taken Blood Culture Stat Lab 05/11/22 16:14 Results Stone Analysis Routine Lab 05/13/22 08:20 Ordered Pathology: Surgical [PTH] Routine Pth 05/13/22 08:20 Received Radiology Impressions Chest X-Ray 05/11/22 10:28 IMPRESSION: Unremarkable chest radiograph. Abdomen/Pelvis CT 05/11/22 11:59 IMPRESSION: 1. Obstructing RIGHT midureteral calculus measuring 5 mm. Mild RIGHT hydronephrosis with inflammatory stranding and edema about the RIGHT kidney. 2. No hydronephrosis in the LEFT kidney. 3. Enlarged bulky fibroid uterus. Low-attenuation cystic appearing lesion near the cervix. Findings can be further evaluated with ultrasound. 4. Bibasilar atelectasis. Trace RIGHT greater than LEFT pleural fluid. 5. No other acute findings. Attempted notification CLARITA Love at 05/11/2022 1:05 PM. KUB X-Ray 05/12/22 06:00 IMPRESSION: No acute findings. Laboratory Results WBC 5.1 10^3/uL (4.0-10.0) 05/12/22 04:19 RBC 4.32 10^6/uL (4.1-5.3) 05/12/22 04:19 Hgb 12.3 g/dL (11.5-15.3) 05/12/22 04:19 Hct 38.9 % (37.0-47.0) 05/12/22 04:19 MCV 90.0 fl (81-99) 05/12/22 04:19 MCH 28.5 pg (28.0-34.0) 05/12/22 04:19 MCHC 31.6 g/dL (30.0-36.0) 05/12/22 04:19 RDW 12.4 % (12.1-15.1) 05/12/22 04:19 Plt Count 233 10^3/cmm (130-400) 05/12/22 04:19 MPV 9.6 fL (7.4-10.4) 05/12/22 04:19 Neut % (Auto) 90.3 % 05/11/22 10:59 Lymph % (Auto) Not Reportable 05/12/22 04:19 [place] % (Auto) Not Reportable 05/12/22 04:19 Eos % (Auto) 0.0 % 05/11/22 10:59 Baso % (Auto) 0.1 % 05/11/22 10:59 Neut # (Auto) 6.57 10^3/uL (1.8-7.7) 05/11/22 10:59 Lymph # (Auto) Not Reportable 05/12/22 04:19 [place] # (Auto) Not Reportable 05/12/22 04:19 Eos # (Auto) 0.0 10^3/uL (0.0-0.8) 05/11/22 10:59 Baso # (Auto) 0.0 10^3/uL (0.0-0.1) 05/11/22 10:59 Nucleated RBC % (auto) 0 % 05/11/22 10:59 Total Counted 100 (0-100) 05/12/22 04:19 Atypical Lymphs % 0.0 % (0-5) 05/12/22 04:19 Absolute Neutrophils 4.1 10^3/cmm (1.4-6.5) 05/12/22 04:19 Segmented Neutrophils 76 % 05/12/22 04:19 Abs Segm Neuts (Man) 3.9 10/cmm (1.6-7.1) 05/12/22 04:19 Band Neutrophils 5.0 % 05/12/22 04:19 Abs Band Neuts (Man) 0.3 10^3/cmm (0.0-1.2) 05/12/22 04:19 Absolute Lymphocytes 0.5 10^3/cmm (1.2-3.4) L 05/12/22 04:19 Lymphocytes (Manual) 9 % 05/12/22 04:19 Monocytes (Manual) 7.0 % 05/12/22 04:19 Absolute Monocytes 0.4 10^3/cmm (0.1-0.6) 05/12/22 04:19 Eosinophils (Manual) 0 % 05/12/22 04:19 Absolute Eosinophils 0.0 10^3/cmm (0.0-0.7) 05/12/22 04:19 Basophils (Manual) 0.0 % 05/12/22 04:19 Absolute Basophils 0.0 10^3/cmm (0.0-0.2) 05/12/22 04:19 Metamyelocytes 2.0 % 05/12/22 04:19 Myelocytes 1.0 % 05/12/22 04:19 Nucleated RBCs # 0.0 /100WBC 05/11/22 10:59 Toxic Granulation 1+ H 05/12/22 04:19 Platelet Estimate Normal (Normal) 05/12/22 04:19 Sodium 133 mmol/L (136-145) L 05/12/22 04:19 Potassium 4.4 mmol/L (3.5-5.1) 05/12/22 04:19 Chloride 100 mmol/L (98-107) 05/12/22 04:19 Carbon Dioxide 22 mmol/L (22-29) 05/12/22 04:19 Anion Gap 15.4 (5-19) 05/12/22 04:19 BUN 10 mg/dL (6-20) 05/12/22 04:19 Creatinine 0.6 mg/dL (0.5-0.9) 05/12/22 04:19 GFR Calculation 108.1 mL/min (90-130) 05/12/22 04:19 Glucose 133 mg/dL (65-115) H 05/12/22 04:19 Calculated Osmolality 277 mOsm/kg (285-295) L 05/12/22 04:19 Calcium 8.8 mg/dL (8.5-10.5) 05/12/22 04:19 Total Bilirubin 0.8 mg/dL (0.15-1.2) 05/11/22 10:59 AST 54 U/L (0-32) H 05/11/22 10:59 ALT 67 U/L (0-33) H 05/11/22 10:59 Alkaline Phosphatase 98 U/L (35-105) 05/11/22 10:59 Total Protein 7.7 g/dL (6.6-8.7) 05/11/22 10:59 Albumin 3.9 g/dL (3.5-5.2) 05/11/22 10:59 Globulin 3.8 g/dL (1.3-4.6) 05/11/22 10:59 Urine Color Light yellow (Yellow) 05/11/22 13:32 Urine Appearance Clear (CLEAR) 05/11/22 13:32 Urine pH 6 (5-7) 05/11/22 13:32 Ur Specific [place] 1.005 (1.005-1.030) 05/11/22 13:32 Urine Protein Neg (Negative) 05/11/22 13:32 Urine Glucose (UA) Norm (Normal) 05/11/22 13:32 Urine Ketones Negative (Negative) 05/11/22 13:32 Urine Blood 2+ (Negative) H 05/11/22 13:32 Urine Nitrate Negative (Negative) 05/11/22 13:32 Urine Bilirubin Neg (Negative) 05/11/22 13:32 Urine Urobilinogen Norm mg/dL (Negative) 05/11/22 13:32 Ur Leukocyte Esterase Negative (Negative) 05/11/22 13:32 Urine RBC 0-4 /hpf (0-2) H 05/11/22 11:17 Urine WBC 0-4 /hpf (0-5) H 05/11/22 11:17 Ur Squamous Epith Cells 5-10 /hpf (0-5) H 05/11/22 11:17 Amorphous Sediment Trace /hpf 05/11/22 11:17 Urine Bacteria 1+ /hpf (NONE) H 05/11/22 11:17 Urine HCG, Qual Negative (Negative) 05/13/22 06:35 Influenza Type A Ag negative (Negative) 05/11/22 11:05 Influenza Type B Ag negative (Negative) 05/11/22 11:05 SARS-CoV-2 Ag (Rapid) negative (Negative) 05/11/22 11:05 Additional Data from Hospital Stay She had translators of her choice throughout the hospitalization for important conversations required around the decision making for treatment. Procedures Performed Cystoscopy, right retrograde ureteropyelogram Right ureteroscopy laser lithotripsy and stent Vitals Last Vital Signs Temp 98.9 F 05/13/22 08:34 Pulse 82 05/13/22 08:34 Resp 18 05/13/22 08:34 BP 117/77 05/13/22 08:34 Pulse Ox 97 05/13/22 08:34 O2 Del Method 05/13/22 08:34 O2 Flow Rate 6 05/13/22 08:14 Discharge Plan Discharge Patient Disposition: Home Condition: Stable Prescriptions: Continued Cipro 500 mg Tablet 500 mg PO BID acetaminophen 500 mg Tablet 500 mg PO Q6H PRN (Reason: Fever) Discharge Orders: Discharge Order (Routine); Ordered 05/13/22 Ordered By: Matthew Schulte Referrals: Matthew Schulte MD [Physician] - 05/18/22 (Cystoscopy stent removal DR OFFICE WILL CALL WITH A TIME FOR APPOINTMENT ) Discharge Diet: Usual diet Discharge Activity: Increase activity as tolerated Patient Instructions: Opioid Safety Activity Restrictions/Additional Instructions: 1. The procedure went very well. The stone was completely fragmented. You may still pass some small sand-like particles but there should not be anything substantial. 2. A stent was left indwelling as we had discussed before surgery. 3. The stent will likely create some blood in your urine, urinary frequency and urgency, and possibly some right flank pain with urination. These are all normal and will resolve once the stent is removed. 4. We will take the stent out in my office on Wednesday afternoon, 05/18/2022 5. It is important to continue and complete the antibiotic that was provided to you before you came into the hospital. Its name is CIPROFLOXACIN. Take it twice a day until gone Discharge Attestations Time Spent in Discharge Care*: greater than 30 min Quality Metrics Clinical Quality Measures [ No reported AMI, CVA or VTE this stay] Coding Level of Care Code Acute Code for [facility] Fwd Diagnoses Right ureteral calculus N20.1 UTI (urinary tract infection) N39.0
--- NOTE | 2022-05-13 11:46 | P.CONIM_ITS ---
Providers/Reason For Consult Consulting Physician/Specialty*: Dr. Schulte Reason for Consult*: Airway trauma, Attending Physician: Matthew Schulte MD History of Present Illness History of Present Illness Rickie Reyes is a 46 year old female with known significant past medical history, who was admitted to [facility] for right ureteral colliculi status post cystoscopy, right retrograde pyelogram ureteropyelogram, right ure teroscopy with laser lithotripsy stent placement. I was called by nursing staff to see patient, as she was having blood in her sputum, complaining of dysphagia and nurses had examined blood in her posterior pharynx. I was able to speak to patient with a [place] paraprofessional interpreter, she denies any history of airway issues in the past, no history of difficult intubation or extubation, no issues with enlar ged tonsils, no bleeding issues in the past. She tells me that she continues to have blood in her sputum, she absolutely denies any shortness of breath, she does report a bit of a globus sensation in the back of her throat, difficulty swallowing, is doing okay with liquids swallowing her saliva. Upon examination of her posterior pharynx she did have clots of blood, and dried blood in her around her anterior pharynx , she has a mild empty score 3-4, so I was not able to see her tonsils, I was not able to see her posterior pharynx, her vitals were stable normal O2 sats, I saw her drink some liquids, and she did this without difficulty but did have a globus sensation, I had spoken to Dr. Dennis, and she came to bedside, we had patient jeimy, reexamined since her pharynx, it looks a bit improved but continues to have blood with clots, does not look like fresh blood, looks at old blood we gave her Decadron, Chloraseptic spray and monitored for the next few hours. Dr. Dennis told me that it possibly could be extubation process, there was reported biting of the right side of her ton smith. She was reexamined over the next few hours, I periodically rechecked on her, her swallowing function has improved, she is swallowing liquids without any difficulty still having some globus sensation but significantly improved, remains afebrile, remains on room air. I did also discuss the case with ENT, for consideration there is no laryngeal endoscopy, however they felt that there was no acute need, and that we should continue steroids, continue having her gargle liquids, Chloraseptic spray, and have her follow-up as outpatient. She was reexamined, she continues to feel better, no difficulty breathing, no difficulty swallowing liquids, some degree of globus sensation, she is tolerati ng liquids well, no tongue pain, she feels better she wants to go home. I reexamined her pharynx, again as prior, no fresh blood, no fresh bleeding that I could see just old blood with clots. She really wants to go home, I advised her to take Decadron for 4 remaining days, Chloraseptic spray as needed. She should adhere to a clear liquid diet for at least 24 hours, try cool liquids to decrease inflammation. If after 24 hours she feels better, then she could try GI soft diet and from thereon then, can advance as tolerated. I would avoid harsh abrasive foods such as chips. I am going to have her follow-up with ENT next week, for a nasal laryngeal endoscopy. If she has any sudden worsening of her dysphagia, inability to swallow, worsening globus sensation or difficulty breathing,, normal to go to the emergency room. Patient and voiced understanding, all questions answered, agreed to proceed. Just before she goes I would have therapy see her -Spoke to ENT Dr. Love -Spoke to Dr. Dennis, anesthesiology -Spoke to Dr. Schulte -Used a [place] fitter placer -Spoke to nursing staff Review of Systems Const: Denies: fever(s) Eyes: Denies: change in vision Medications/Allergies Home Medications Medication Instructions Recorded Confirmed Last Taken Type acetaminophen 500 mg tablet 500 mg PO Q6H PRN Fever 05/11/22 05/11/22 05/11/22 History ciprofloxacin HCl 500 mg tablet 500 mg PO BID 05/11/22 05/11/22 05/11/22 History (Cipro) dexamethasone 0.5 mg/5 mL oral 5 mg (50 mL) PO DAILY 4 days #200 05/13/22 Unknown Rx elixir mL phenol 1.4 % mucosal aerosol spray 4 spray mucous membrane Q5H PRN 05/13/22 Unknown Rx (Chloraseptic Throat [place]) sore throat #177 mL Allergies Allergy/AdvReac Type Severity Reaction Status Date / Time No Known Allergies Allergy Verified 02/24/22 00:27 Current Medications Generic Name Dose Route Start Last Admin Trade Name Freq PRN Reason Stop Dose Admin Docusate Sodium 100 mg 05/11/22 18:00 05/12/22 17:29 Docusate Sodium 100 Mg Capsule PO Not Given BID KATERYNA Ketorolac Tromethamine 30 mg 05/11/22 17:49 05/13/22 09:30 Ketorolac 30 Mg/Ml Inj IVP 05/16/22 17:48 30 mg Q6H PRN Administration MODERATE PAIN Oxycodone/Acetaminophen 1 tab 05/11/22 17:49 05/12/22 10:47 Oxycodone-Apap 5-325 Mg Tablet PO 1 tab Q4H PRN Administration SEVERE PAIN PO 1ST Pantoprazole Sodium 40 mg 05/12/22 09:00 05/12/22 08:[address] 40 Mg Tablet PO 40 mg DAILY KATERYNA Administration PFSH Acute PFSH: Medical History (Updated 05/13/22 @ 15:36 by Michael Bains MD) No pertinent past medical history Surgical History (Updated 05/13/22 @ 15:35 by Michael Bains MD) No pertinent past surgical history Social History (Updated 05/13/22 @ 15:35 by Michael Bains MD) Smoking and tobacco status: never smoked Alcohol intake: never Substance/Drug Use: never Female Reproductive History: Date of last menstrual period: 05/01/22 Vitals/I&O/Wt Last Vital Signs Temp 98.9 F 05/13/22 08:34 Pulse 82 05/13/22 08:34 Resp 18 05/13/22 08:34 BP 117/77 05/13/22 08:34 Pulse Ox 97 05/13/22 08:34 O2 Del Method 05/13/22 08:34 O2 Flow Rate 6 05/13/22 08:14 05/12/22 05/13/22 05/13/22 22:59 06:59 14:59 Intake Total 1839.583 / 2339.583 50 / 2389.583 560.417 / 560.417 Output Total Balance 1839.583 / 2339.583 50 / 2389.583 559.417 / 559.417 Weight last 48 hrs Weight 70.987 kg Physical Exam Const: COMMON NORMALS: no acute distress and patient oriented x3 HENMT: COMMON NORMALS: normocephalic HEAD & SCALP: normocephalic Neck/C-Spine: COMMON NORMALS: full ROM, no lymphadenopathy and supple Resp: COMMON NORMALS: normal respiratory effort, No retractions, No use of accessory muscles and clear to auscultation bilaterally AUSCULTATION: clear to auscultation bilaterally Cardio: COMMON NORMALS: regular rate, regular rhythm, S1 normal heart sound present and S2 normal heart sound present RATE: regular rate RHYTHM: regular rhythm HEART SOUNDS: S1 normal heart sound present and S2 normal heart sound present GI: COMMON NORMALS: Normal to inspection, nondistended, normoactive bowel sounds present and non-tender Extremity: COMMON NORMALS: no pedal edema Neuro: COMMON NORMALS: patient oriented x3 Psych: COMMON NORMALS: mental status grossly normal Data 05/12/22 04:19 05/12/22 04:19 Micro: Microbiology 05/11/22 15:34 Urine Culture - Final Urine,Clean Catch 05/11/22 16:14 Blood Culture - Preliminary Blood NEGATIVE TO DATE 05/11/22 16:08 Blood Culture - Preliminary Blood NEGATIVE TO DATE A&P Assessment and plan (1) Airway trauma: -as above Plan _as above and High MDM includes number and complexity of problems actively addressed during encounter, amount and/or complexity of data reviewed/ordered and described risk of complication, morbidity or mortality of management as documented Diagnoses Airway trauma S27.9XXA
--- NOTE | 2022-05-13 11:47 | PM.MISC ---
Miscellaneous Note Note: Patient reporting bleeding from oropharynx, sore throat, some difficulty swallowing, and globus sensation. No difficulty breathing. During intubation, patient's airway was noted to be slightly anterior, requiring B.U.R.P. Maneuver, with no other difficulties. Patient was reported to bite R side of her tongue during emergence leading to some bleeding. Exam of pharynx shows several 2-3 mm-wide adherent clots to the soft palate/ posterior throat. These did not wash away with 2 or 3 swallows of water (patient was instructed to gargle water, but did not, possibly d/t translation difficulty). There was no active bleeding. Since patient is not having any difficulty breathing and shows no signs of acute distress, we elected to start with chloraseptic spray for relief of discomfort and decadron 8 mg IV pushed slowly to help counter any airway swelling. If patient starts to bleed copiously or develops difficulty with breathing, ENT consult would be required.
[2022-05-13] MEDS: phenol oral Spray 177 mL 3 SPRAY MUCOUS MEM (13:04)
[2022-05-13] MEDS: dexamethasone 10 mg/mL INJ 8 MG IVP (13:05)
--- NOTE | 2022-05-13 13:52 | ANE.PACU2 ---
Inpatient post-anesthesia follow up: Airway intact: Yes Vital signs: Temperature 98.9 F Pulse Rate 82 Respiratory Rate 18 Blood Pressure 117/77 Pulse Oximetry 97 Oxygen Delivery Me thod Room Air Oxygen Flow Rate 6 Fraction of Inspir ed Oxygen Hydration adequate: Yes Nausea and vomiting: No Pain level: 1 Mental status: Baseline
[2022-05-18 18:59] LABS: Stone Source RIGHT URETER
== END 2022-05-13 16:36 | disposition home or self-care (01) | DRG 661 ==
LOC: ER 15:10 → MEDSURG 17:13
PROVIDERS: Anesthesiology; Admitting Provider Urology; Emergency Provider Physician Assistant; Visit Provider Urology
PROC: 0TJB8ZZ Inspection of Bladder, Via Natural or Artificial Opening Endoscopic (ICD-10-PCS; CPT 52000; principal; 2022-05-13 07:00)
PROC: 0T768DZ Dilation of Right Ureter with Intraluminal Device, Via Natural or Artificial Opening Endoscopic (ICD-10-PCS; CPT 74420; 2022-05-13 07:00)
PROC: 0TJ98ZZ Inspection of Ureter, Via Natural or Artificial Opening Endoscopic (ICD-10-PCS; CPT 52351; 2022-05-13 07:00)
PROC: 0T768DZ Dilation of Right Ureter with Intraluminal Device, Via Natural or Artificial Opening Endoscopic (ICD-10-PCS; CPT 50605; 2022-05-13 07:00)
PROC: 0T768DZ Dilation of Right Ureter with Intraluminal Device, Via Natural or Artificial Opening Endoscopic (ICD-10-PCS; 2022-05-13 07:00)
DX: N20.1 Calculus of ureter (principal)
CPT/HCPCS: 36415; 51701; 71045; 74018; 74176; 76000; 80048; 80053; 81001; 81003; 81025; 82365; 84703; 85007; 85025; 87040; 87086; 87426; 87804; 88300; 92610; 96365; 96375; 99285; C2625; J0330; J0696; J1100; J1885; J2250; J2270; J2405; J2704; J2710; J3010; J3480; J3490; J7030; Q9967

== ENCOUNTER 2022-05-19 07:41 | Outpatient (CLI) | payer OTHER, SELFPAY ==
--- NOTE | 2022-05-19 07:48 | XR_ITS ---
WS: [id number] K[facility], AP view 05/19/2022 Clinical Data: stone Comparison: KUB, 05/12/2022 Findings: The right ureteral stent is in good position No abnormal intraabdominal masses or calcifications are seen. There is no dilatated small bowel or ev idence of obstruction. XR/XR KUB [id number] Impression: Right ureteral stent.
== END 2022-05-19 07:42 | disposition home or self-care (01) ==
LOC: RAD 07:43
PROVIDERS: Visit Provider Urology
DX: N20.9 Urinary calculus, unspecified (principal); Z96.0 Presence of urogenital implants
CPT/HCPCS: 74018; 81003

== ENCOUNTER 2024-08-06 22:01 | Emergency (ER) | payer OTHER, SELFPAY ==
[2024-08-06 22:03] VITALS: BP 142/86; PULSE 77; RESP 16; TEMP 36.6; O2SAT 99; BMI 26.6
[2024-08-06 22:44] LABS: Bilirubin Urine Negative (Negative); Blood Urine Negative (Negative); Glucose Urine UA Negative (Normal); Ketones Urine Negative (Negative); Leukocyte Esterase Urine Negative (Negative); Nitrate Urine Negative (Negative); Protein Urine Negative (Negative); Specific Gravity, Urine 1.011 (1.005-1.030); Urine Appearance Clear (CLEAR); Urine Color Yellow (Yellow); Urobilinogen Urine 0.2 mg/dL (Negative)
[2024-08-06 22:49] LABS: Bacteria Urine None Seen /hpf; Hyaline Casts Urine 0-4 /lpf; RBC Urine 0-2 /hpf (0-2); Squamous Epithelial Cell Urine 0-5 /hpf (0-5); WBC Urine 0-5 /hpf (0-5)
--- NOTE | 2024-08-06 23:43 | W.ED.FEMALGU ---
Documented by User: Rafal Cobb DO 08/08/24 03:57 HPI - Female Genitourinary General: Chief complaint: Urogenital-Female Stated complaint: Vaginal pain when urinate itching Time Seen by Provider: 08/06/24 23:15 History of Present Illness: The patient is a Mandarin-speaking female presenting to the emergency department with complaints of vaginal pain and swelling. She reports experiencing pain and itching in her vaginal area for approximately one week. Initially, the patient experienced itching on both sides of her vagina, which has now progressed to pain and swelling. She describes the pain as severe, making it uncomfortable to walk or touch the affected area. The patient notes that this episode feels different from a previous yeast infection she experienced 5-6 years ago. In the past, itching was the primary symptom, whereas now she is experiencing significant pain and swelling. She mentions that when she takes a shower, she can feel that the parts are swollen. The patient denies any pain while urinating but reports discomfort and pain when walking. The patient's son, who is interpreting, mentions that his mother had experienced some temperature fluctuations, with her face becoming entirely red and her eyes also turning red during work. However, these symptoms have improved, though her eyes are still somewhat affected. The patient denies being sexually active for a long time and reports no history of sexually transmitted infections. She also mentions that she is not currently experiencing any discharge, though she notes that she just wipes stuff. Related Data Home Medications ?Medication ?Instructions ?Recorded ?Confirmed acetaminophen 500 mg tablet 500 mg PO Q6H PRN Fever 05/11/22 05/19/22 ciprofloxacin HCl 500 mg tablet 500 mg PO BID 05/11/22 05/19/22 (Cipro) Previous Rx's ?Medication ?Instructions ?Recorded phenol 1.4 % mucosal aerosol spray 4 spray mucous membrane Q5H PRN 05/13/22 (Chloraseptic Throat Slater) sore throat #177 mL conjugated estrogens 0.625 mg/gram 0.625 mg vaginal DAILY #30 grams 08/07/24 vaginal cream ketorolac 10 mg tablet 10 mg PO TID PRN pain #10 tabs 08/07/24 Allergies Allergy/AdvReac Type Severity Reaction Status Date / Time No Known Allergies Allergy Verified 05/19/22 08:17 Review of Systems General: Reports: 10 or more systems reviewed and unremarkable except in HPI and below PFSH ED PFSH: Medical History No pertinent past medical history Urolithiasis Surgical History No pertinent past surgical history Social History Smoking and tobacco/nicotine status: never used tobacco/nicotine Alcohol intake: never Substance/Drug Use: never Marital status: Current occupational status: employed Physical Exam Const: COMMON NORMALS: no acute distress, patient oriented x3, healthy appearing, alert and well nourished HENMT: COMMON NORMALS: normocephalic HEAD & SCALP: normocephalic Eye: COMMON NORMALS: EOMs intact bilaterally Neck/C-Spine: COMMON NORMALS: full ROM and supple Resp: COMMON NORMALS: normal respiratory effort, No retractions and clear to auscultation bilaterally AUSCULTATION: clear to auscultation bilaterally Cardio: COMMON NORMALS: regular rate, regular rhythm, No gallops present (Cardio) and No murmurs present (Cardio) RATE: regular rate RHYTHM: regular rhythm GI: PALPATION: Yes Tenderness to palpation present (GI) and Yes Bladder palpation abnormal Details: tender : BLADDER/KIDNEY EXAM: Yes Bladder palpation abnormal EXTERNAL FEMALE EXAM: Yes normal appearance of the urethra, No erythema and Yes externally tender (left labia TTP) Extremity: GENERAL: Yes normal exam except as noted Neuro: COMMON NORMALS: patient oriented x3 SENSORIUM/ORIENTATION: Yes alert Skin: COMMON NORMALS: no rashes or lesions noted GENERAL SKIN EXAM: no rashes or lesions noted Course Vital Signs: Vital signs: Vital Signs Temperature 97.8 F 08/06/24 22:03 Pulse Rate 69 08/07/24 02:53 Respiratory Rate 16 08/07/24 02:53 Blood Pressure 109/72 08/07/24 02:53 Pulse Oximetry 99 08/07/24 02:53 Oxygen Delivery Me thod Room Air 08/06/24 22:03 MDM - Female Medical Decision Making 48-year-old Mandarin speaking female presents to the emergency department for pelvic and groin pain. With the assistance of project builder patient's history of a week of pelvic itching that became pain was elicited. Physical exam was globally unremarkable. Her urinalysis and vaginal swab have also been negative. Lab Data 08/07/24 01:39 08/07/24 01:39 Radiology Impressions Abdomen/Pelvis CT 08/07/24 00:59 IMPRESSION: 1. Uterus demonstrates a prominently thickened and enhancing myometrium, with moderate amount of endometrial fluid. These can be expected findings during active menstruation. 2. Stable 2.0 cm cystic lesion located near the uterine cervix, not significantly changed compared to 05/11/2022. 3. Kidneys, ureters, and bladder are normal in appearance. Laboratory Results WBC 10.59 10^3/uL (3.29-11.43) 08/07/24 01:39 RBC 4.35 10^6/uL (3.85-5.65) 08/07/24 01:39 Hgb 13.20 g/dL (11.27-16.99) 08/07/24 01:39 Hct 41.4 % (36-47) 08/07/24 01:39 MCV 95.2 fl (85-98) 08/07/24 01:39 MCH 30.3 pg (27-33) 08/07/24 01:39 MCHC 31.9 g/dL (30-55) 08/07/24 01:39 RDW 12.1 % (12.1-15.1) 08/07/24 01:39 Plt Count 314 10^3/cmm (157-399) 08/07/24 01:39 MPV 9.3 fL (7.4-10.4) 08/07/24 01:39 Neut % (Auto) 72.2 % 08/07/24 01:39 Lymph % (Auto) 20.3 % 08/07/24 01:39 [place] % (Auto) 5.8 % 08/07/24 01:39 Eos % (Auto) 0.8 % 08/07/24 01:39 Baso % (Auto) 0.6 % 08/07/24 01:39 Neut # (Auto) 7.65 10^3/uL (1.8-7.7) 08/07/24 01:39 Lymph # (Auto) 2.2 10^3/uL (0.8-4.8) 08/07/24 01:39 [place] # (Auto) 0.6 10^3/uL (0.2-0.9) 08/07/24 01:39 Eos # (Auto) 0.1 10^3/uL (0.0-0.8) 08/07/24 01:39 Baso # (Auto) 0.1 10^3/uL (0.0-0.1) 08/07/24 01:39 Nucleated RBC % (auto) 0 % 08/07/24 01:39 Nucleated RBCs # 0.0 /100WBC 08/07/24 01:39 Sodium 137 mmol/L (136-145) 08/07/24 01:39 Potassium 3.9 mmol/L (3.5-5.1) 08/07/24 01:39 Chloride 102 mmol/L (98-107) 08/07/24 01:39 Carbon Dioxide 22 mmol/L (22-29) 08/07/24 01:39 Anion Gap 16.9 (5-19) 08/07/24 01:39 BUN 14 mg/dL (6-20) 08/07/24 01:39 Creatinine 0.4 mg/dL (0.5-0.9) L 08/07/24 01:39 GFR Calculation 171.1 mL/min (90-130) H 08/07/24 01:39 Glucose 116 mg/dL (65-115) H 08/07/24 01:39 Calculated Osmolality 285 mOsm/kg (285-295) 08/07/24 01:39 Calcium 9.3 mg/dL (8.5-10.5) 08/07/24 01:39 Total Bilirubin 0.3 mg/dL (0.15-1.2) 08/07/24 01:39 AST 18 U/L (0-32) 08/07/24 01:39 ALT 17 U/L (0-33) 08/07/24 01:39 Alkaline Phosphatase 62 U/L (35-105) 08/07/24 01:39 Total Protein 8.0 g/dL (6.6-8.7) 08/07/24 01:39 Albumin 4.6 g/dL (3.5-5.2) 08/07/24 01:39 Globulin 3.4 g/dL (1.3-4.6) 08/07/24 01:39 HCG, Qual Negative (Negative) 08/06/24 22: Urine Color Yellow (Yellow) 08/06/24 22:23 Urine Appearance Clear (CLEAR) 08/06/24 22: Urine pH 6.0 (5-7) 08/06/24 22:23 Ur Specific [place] 1.011 (1.005-1.030) 08/06/24 22:23 Urine Protein Negative (Negative) 08/06/24 22: Urine Glucose (UA) Negative (Normal) 08/06/24 22: Urine Ketones Negative (Negative) 08/06/24 22:23 Urine Blood Negative (Negative) 08/06/24 22: Urine Nitrate Negative (Negative) 08/06/24 22: Urine Bilirubin Negative (Negative) 08/06/24 22: Urine Urobilinogen 0.2 mg/dL (Negative) 08/06/24 22:23 Ur Leukocyte Esterase Negative (Negative) 08/06/24 22:23 Urine RBC 0-2 /hpf (0-2) 08/06/24 22:23 Urine WBC 0-5 /hpf (0-5) 08/06/24 22:23 Ur Squamous Epith Cells 0-5 /hpf (0-5) 08/06/24 22:23 Amorphous Sediment Not Reportable 08/06/24 22:23 Urine Bacteria None seen /hpf (NONE) 08/06/24 22: Hyaline Casts 0-4 /lpf H 08/06/24 22:23 All radiology interpretation(s) finalized by discharge Discharge Plan Discharge Patient Disposition: Home Clinical Impression: Vaginitis Qualifiers: Chronicity: acute Qualified Code(s): N76.0 - Acute vaginitis Condition: Stable Prescriptions: New conjugated estrogens 0.625 mg/gram cream 0.625 mg vaginal DAILY Qty: 30 0RF Rx Instructions: off 5 days; repeat cycle ketorolac 10 mg tablet 10 mg PO TID PRN (Reason: pain) Qty: 10 0RF No Action Cipro 500 mg Tablet 500 mg PO BID acetaminophen 500 mg Tablet 500 mg PO Q6H PRN (Reason: Fever) Chloraseptic Throat Slater 1.4 % aerosol,spray 4 spray mucous membrane Q5H PRN (Reason: sore throat) Qty: 177 0RF Discharge Orders: Discharge ED (Routine); Ordered 08/07/24 Ordered By: Александр Syed Patient Instructions: Vaginal Atrophy (ED), Opioid Safety, Pain Management Activity Restrictions/Additional Instructions: Use medication orally, and cream for the next 3 days. Call your doctor in the morning for a follow-up appointment. This should improve rather dramatically, if not repeat examination may be needed. Print Language: Cantonese Beninese Coding Level of Care Code ED Base Filler Operator for Chg Fwd Documented by User: Александр Syed, DO 08/08/24 14:21 HPI - Female Genitourinary General: Chief complaint: Urogenital-Female Stated complaint: Vaginal pain when urinate itching Time Seen by Provider: 08/06/24 23:15 Related Data Home Medications ?Medication ?Instructions ?Recorded ?Confirmed acetaminophen 500 mg tablet 500 mg PO Q6H PRN Fever 05/11/22 05/19/22 ciprofloxacin HCl 500 mg tablet 500 mg PO BID 05/11/22 05/19/22 (Cipro) Previous Rx's ?Medication ?Instructions ?Recorded phenol 1.4 % mucosal aerosol spray 4 spray mucous membrane Q5H PRN 05/13/22 (Chloraseptic Throat Slater) sore throat #177 mL conjugated estrogens 0.625 mg/gram 0.625 mg vaginal DAILY #30 grams 08/07/24 vaginal cream ketorolac 10 mg tablet 10 mg PO TID PRN pain #10 tabs 08/07/24 Allergies Allergy/AdvReac Type Severity Reaction Status Date / Time No Known Allergies Allergy Verified 05/19/22 08:17 [facility] ED PFSH: Medical History No pertinent past medical history Urolithiasis Surgical History No pertinent past surgical history Social History Smoking and tobacco/nicotine status: never used tobacco/nicotine Alcohol intake: never Substance/Drug Use: never Marital status: Current occupational status: employed Course Vital Signs: Vital signs: Vital Signs Temperature 97.8 F 08/06/24 22:03 Pulse Rate 69 08/07/24 02:53 Respiratory Rate 16 08/07/24 02:53 Blood Pressure 109/72 08/07/24 02:53 Pulse Oximetry 99 08/07/24 02:53 Oxygen Delivery Me thod Room Air 08/06/24 22:03 MDM - Female Medical Decision Making 48-year-old Mandarin speaking female presents to the emergency department for pelvic and groin pain. With the assistance of project builder patient's history of a week of pelvic itching that became pain was elicited. Physical exam was globally unremarkable. Her urinalysis and vaginal swab have also been negative. This patient was checked out to me at shift change. CT had been ordered, which is unremarkable. She has given a dose of diflucan here for subclinical yeast infection, as this matches her symptoms. As the vaginitis could be atrophic, she will be placed on a short course of estrogen cream. She is given ketorolac for pain. Outpatient follow up. Lab Data 08/07/24 01:39 08/07/24 01:39 Radiology Impressions Abdomen/Pelvis CT 08/07/24 00:59 IMPRESSION: 1. Uterus demonstrates a prominently thickened and enhancing myometrium, with moderate amount of endometrial fluid. These can be expected findings during active menstruation. 2. Stable 2.0 cm cystic lesion located near the uterine cervix, not significantly changed compared to 05/11/2022. 3. Kidneys, ureters, and bladder are normal in appearance. Laboratory Results WBC 10.59 10^3/uL (3.29-11.43) 08/07/24 01:39 RBC 4.35 10^6/uL (3.85-5.65) 08/07/24 01:39 Hgb 13.20 g/dL (11.27-16.99) 08/07/24 01:39 Hct 41.4 % (36-47) 08/07/24 01:39 MCV 95.2 fl (85-98) 08/07/24 01:39 MCH 30.3 pg (27-33) 08/07/24 01:39 MCHC 31.9 g/dL (30-55) 08/07/24 01:39 RDW 12.1 % (12.1-15.1) 08/07/24 01:39 Plt Count 314 10^3/cmm (157-399) 08/07/24 01:39 MPV 9.3 fL (7.4-10.4) 08/07/24 01:39 Neut % (Auto) 72.2 % 08/07/24 01:39 Lymph % (Auto) 20.3 % 08/07/24 01:39 [place] % (Auto) 5.8 % 08/07/24 01:39 Eos % (Auto) 0.8 % 08/07/24 01:39 Baso % (Auto) 0.6 % 08/07/24 01:39 Neut # (Auto) 7.65 10^3/uL (1.8-7.7) 08/07/24 01:39 Lymph # (Auto) 2.2 10^3/uL (0.8-4.8) 08/07/24 01:39 [place] # (Auto) 0.6 10^3/uL (0.2-0.9) 08/07/24 01:39 Eos # (Auto) 0.1 10^3/uL (0.0-0.8) 08/07/24 01:39 Baso # (Auto) 0.1 10^3/uL (0.0-0.1) 08/07/24 01:39 Nucleated RBC % (auto) 0 % 08/07/24 01:39 Nucleated RBCs # 0.0 /100WBC 08/07/24 01:39 Sodium 137 mmol/L (136-145) 08/07/24 01:39 Potassium 3.9 mmol/L (3.5-5.1) 08/07/24 01:39 Chloride 102 mmol/L (98-107) 08/07/24 01:39 Carbon Dioxide 22 mmol/L (22-29) 08/07/24 01:39 Anion Gap 16.9 (5-19) 08/07/24 01:39 BUN 14 mg/dL (6-20) 08/07/24 01:39 Creatinine 0.4 mg/dL (0.5-0.9) L 08/07/24 01:39 GFR Calculation 171.1 mL/min (90-130) H 08/07/24 01:39 Glucose 116 mg/dL (65-115) H 08/07/24 01:39 Calculated Osmolality 285 mOsm/kg (285-295) 08/07/24 01:39 Calcium 9.3 mg/dL (8.5-10.5) 08/07/24 01:39 Total Bilirubin 0.3 mg/dL (0.15-1.2) 08/07/24 01:39 AST 18 U/L (0-32) 08/07/24 01:39 ALT 17 U/L (0-33) 08/07/24 01:39 Alkaline Phosphatase 62 U/L (35-105) 08/07/24 01:39 Total Protein 8.0 g/dL (6.6-8.7) 08/07/24 01:39 Albumin 4.6 g/dL (3.5-5.2) 08/07/24 01:39 Globulin 3.4 g/dL (1.3-4.6) 08/07/24 01:39 HCG, Qual Negative (Negative) 08/06/24 22:23 Urine Color Yellow (Yellow) 08/06/24 22:23 Urine Appearance Clear (CLEAR) 08/06/24 22:23 Urine pH 6.0 (5-7) 08/06/24 22:23 Ur Specific [place] 1.011 (1.005-1.030) 08/06/24 22:23 Urine Protein Negative (Negative) 08/06/24 22:23 Urine Glucose (UA) Negative (Normal) 08/06/24 22:23 Urine Ketones Negative (Negative) 08/06/24 22:23 Urine Blood Negative (Negative) 08/06/24 22:23 Urine Nitrate Negative (Negative) 08/06/24 22:23 Urine Bilirubin Negative (Negative) 08/06/24 22:23 Urine Urobilinogen 0.2 mg/dL (Negative) 08/06/24 22:23 Ur Leukocyte Esterase Negative (Negative) 08/06/24 22:23 Urine RBC 0-2 /hpf (0-2) 08/06/24 22:23 Urine WBC 0-5 /hpf (0-5) 08/06/24 22:23 Ur Squamous Epith Cells 0-5 /hpf (0-5) 08/06/24 22:23 Amorphous Sediment Not Reportable 08/06/24 22:23 Urine Bacteria None seen /hpf (NONE) 08/06/24 22:23 Hyaline Casts 0-4 /lpf H 08/06/24 22:23 Discharge Plan Discharge Patient Disposition: Home Clinical Impression: Vaginitis Qualifiers: Chronicity: acute Qualified Code(s): N76.0 - Acute vaginitis Condition: Stable Prescriptions: New conjugated estrogens 0.625 mg/gram cream 0.625 mg vaginal DAILY Qty: 30 0RF Rx Instructions: off 5 days; repeat cycle ketorolac 10 mg tablet 10 mg PO TID PRN (Reason: pain) Qty: 10 0RF No Action Cipro 500 mg Tablet 500 mg PO BID acetaminophen 500 mg Tablet 500 mg PO Q6H PRN (Reason: Fever) Chloraseptic Throat Slater 1.4 % aerosol,spray 4 spray mucous membrane Q5H PRN (Reason: sore throat) Qty: 177 0RF Discharge Orders: Discharge ED (Routine); Ordered 08/07/24 Ordered By: Александр Syed Patient Instructions: Vaginal Atrophy (ED), Opioid Safety, Pain Management Activity Restrictions/Additional Instructions: Use medication orally, and cream for the next 3 days. Call your doctor in the morning for a follow-up appointment. This should improve rather dramatically, if not repeat examination may be needed. Print Language: Cantonese Beninese Coding Level of Care Code ED Base Filler Operator for Malu Stanley
--- NOTE | 2024-08-07 00:59 | CTR_ITS ---
PROCEDURE INFORMATION: Exam: CT Abdomen And Pelvis With Contrast Exam date and time: 08/07/2024 1:44 AM Age: 48 years old Clinical indication: Pelvic pain with dysuria. TECHNIQUE: Imaging protocol: Computed tomography of the abdomen and pelvis with contrast. Radiation optimization: All CT scans at this facility use at least one of these dose optimization techniques: automated exposure control; mA and/or kV adjustment per patient size (includes targeted exams where dose is matched to clinical indication); or iterative reconstruction. Contrast material: OMNI 350; Contrast volume: 75 ml; Contrast route: INTRAVENOUS (IV); COMPARISON: CT kidney stone [id number] 05/11/2022 12:29 PM RADIATION DOSE METRICS: Total DLP (mGy-cm): 583.42 FINDINGS: Liver: Multiple small benign-appearing hypoattenuating lesions in the liver, measuring up to 1.4 cm. No suspicious hepatic masses. Gallbladder and biliary ducts: The gallbladder is unremarkable. No biliary ductal dilatation. Pancreas: The pancreas is unremarkable. Spleen: The spleen is unremarkable. Adrenal glands: The adrenal glands are unremarkable. Kidneys and ureters: Kidneys are normal in appearance. No hydronephrosis or hydroureter. No evidence of renal stones. Stomach and bowel: No evidence of bowel obstruction. Appendix: No evidence of acute appendicitis. Intraperitoneal space: No significant free fluid in the abdomen or pelvis. No extraluminal free air. Vasculature: Abdominal aorta and its major branches are within normal limits. No abdominal aortic aneurysm. Lymph nodes: No distinct pathologically enlarged lymphadenopathy. Urinary bladder: Urinary bladder is within normal limits. Reproductive: Uterus demonstrates a prominently thickened and enhancing myometrium, with moderate amount of endometrial fluid. Bones/joints: No acute osseous findings. Soft tissues: Visualized superficial soft tissues are within normal limits. CT/CT abdomen pelvis w con* [id number] IMPRESSION: 1. Uterus demonstrates a prominently thickened and enhancing myometrium, with moderate amount of endometrial fluid. These can be expected findings during active menstruation. 2. Stable 2.0 cm cystic lesion located near the uterine cervix, not significantly changed compared to 05/11/2022. 3. Kidneys, ureters, and bladder are normal in appearance.
[2024-08-07 01:20] LABS: HCG Qualitative Urine. Negative (Negative)
[2024-08-07] MEDS: iohexol 350 mg/mL 500 mL Btl (per mL) IV (01:45)
[2024-08-07 02:06] LABS: Basophils # 0.1 10^3/uL (0.0-0.1); Basophils % 0.6 %; Eosinophils # 0.1 10^3/uL (0.0-0.8); Eosinophils % 0.8 %; Hematocrit 41.4 % (36-47); Lymphocytes # 2.2 10^3/uL (0.8-4.8); Lymphocytes % 20.3 %; Mean Corpuscular HGB Conc 31.9 g/dL (30-55); Mean Corpuscular Hemoglobin 30.3 pg (27-33); Mean Corpuscular Volume 95.2 fl (85-98); Mean Platelet Volume 9.3 fL (7.4-10.4); Monocytes # 0.6 10^3/uL (0.2-0.9); Monocytes % 5.8 %; Neutrophils # 7.65 10^3/uL (1.8-7.7); Neutrophils % 72.2 %; Nucleated Red Blood Cells % 0 %; Platelet Count 314 10^3/cmm (157-399); Red Blood Count 4.35 10^6/uL (3.85-5.65); Red Cell Distribution Width 12.1 % (12.1-15.1); White Blood Count 10.59 10^3/uL (3.29-11.43)
[2024-08-07 02:19] LABS: Alanine Aminotransferase 17 U/L (0-33); Albumin Level 4.6 g/dL (3.5-5.2); Alkaline Phosphatase 62 U/L (35-105); Anion Gap 16.9 (5-19); Aspartate Amino Transferase 18 U/L (0-32); Blood Urea Nitrogen 14 mg/dL (6-20); Calcium 9.3 mg/dL (8.5-10.5); Carbon Dioxide 22 mmol/L (22-29); Chloride 102 mmol/L (98-107); Creatinine Clr Calc Pharmacy 167.2753; Globulin 3.4 g/dL (1.3-4.6); Glomerular Filtration Rate 171.1 mL/min (90-130); Glucose 116 mg/dL (65-115); Osmolality Calculated 285 mOsm/kg (285-295); Potassium 3.9 mmol/L (3.5-5.1); Sodium 137 mmol/L (136-145); Total Bilirubin 0.3 mg/dL (0.15-1.2)
[2024-08-07 02:20] VITALS: BP 109/72; PULSE 69; RESP 16; O2SAT 99
[2024-08-07 02:53] VITALS: BP 109/72; PULSE 69; RESP 16; O2SAT 99
== END 2024-08-07 03:08 | disposition home or self-care (01) ==
PROVIDERS: Emergency Medicine; Emergency Provider General Practice
DX: N76.0 Acute vaginitis (principal)
CPT/HCPCS: 36415; 74177; 80053; 81001; 81025; 85025; 87210; 99285